=== PATIENT | male | born 1970 | race Caucasian/White ===

== ENCOUNTER 2017-04-03 17:30 | Emergency (ER) | payer BC ==
[~2017-04-03] VITALS: Ht 185.4 cm; Wt 117.9 kg
--- NOTE | ~2017-04-03 | CR172 ---
[facility]. [facility] A Service of [facility] & [facility] RADIOLOGY TEXT RESULTS PATIENT: NEGRO ALVARADO LOCATION: SED : 70 UNIT #: [id number] AGE: [address]: MOY SORIANO SEX: M ORDER DR: [id number] [place] [id number] E MR#: [id number] Acc #: [id number] NAME: NEGRO ALVARADO : 1970 SEX: M STUDY DATE/TIME: 04/03/2017 18:54 UNIT: SED ROOM: STUDY DESCRIPTION: CR Knee 3 Views Lt Attending Physician: Moy Soriano Ordering Physician: Staff Doctor Not On Primary Care Physician: Lesli Gonzalez M.D. MEDICAL IMAGING REPORT This report is preliminary unless electronic signature is present. EXAM Left knee INDICATION Left knee pain and trauma. Fall while cutting grass. FINDINGS 3 views of the left knee without comparison. No fracture, dislocation or effusion. No foreign body. IMPRESSION Negative left knee. Dictated by... Adi Joseph M.D. THIS IS AN ELECTRONICALLY VERIFIED REPORT Adi Joseph M.D. at 04/05/2017 10:32 AM DAMON/sonido TD: 04/04/2017 09:22 JOB #: [id number] MEDICAL IMAGING REPORT Page 1 of 1
--- NOTE | ~2017-04-03 | CR142 ---
[facility] A Service of [facility] & [facility] RADIOLOGY TEXT RESULTS PATIENT: NEGRO ALVARADO LOCATION: SED : 70 UNIT #: [id number] AGE: [address]: MOY SORIANO SEX: M ORDER DR: [id number] [place] [id number] E MR#: [id number] Acc #: [id number] NAME: NEGRO ALVARADO : 1970 SEX: M STUDY DATE/TIME: 04/03/2017 18:54 UNIT: SED ROOM: STUDY DESCRIPTION: CR Hand Min 3 Views Rt Attending Physician: Moy Soriano Ordering Physician: Staff Doctor Not On Primary Care Physician: Lesli Gonzalez M.D. MEDICAL IMAGING REPORT This report is preliminary unless electronic signature is present. EXAM Right hand INDICATION Fall in a ditch. Fall while cutting grass. FINDINGS 3 views of the right hand without comparison. There is no acute fracture or dislocation. Alignment is anatomic. No foreign body. IMPRESSION No acute findings in the right hand. Dictated by... Adi Joseph M.D. THIS IS AN ELECTRONICALLY VERIFIED REPORT Adi Joseph M.D. at 04/05/2017 10:32 AM DAMON/sonido TD: 04/04/2017 09:23 JOB #: [id number] MEDICAL IMAGING REPORT Page 1 of 1
--- NOTE | ~2017-04-03 | CR21 ---
[facility]. [facility] A Service of [facility] & [facility] RADIOLOGY TEXT RESULTS PATIENT: NEGRO ALVARADO LOCATION: SED : 70 UNIT #: [id number] AGE: [address]: MOY SORIANO SEX: M ORDER DR: [id number] [place] [id number] E MR#: [id number] Acc #: [id number] NAME: NEGRO ALVARADO : 1970 SEX: M STUDY DATE/TIME: 04/03/2017 18:54 UNIT: SED ROOM: STUDY DESCRIPTION: CR Ankle Min 3 Views Rt Attending Physician: Moy Soriano Ordering Physician: Physician Non-Staff Primary Care Physician: Lesli Gonzalez M.D. MEDICAL IMAGING REPORT This report is preliminary unless electronic signature is present. EXAM Right ankle INDICATION Fall in a ditch while cutting grass. FINDINGS Three views of the right ankle without comparison. There is some mild lateral soft tissue swelling. There is no fracture or dislocation. There is some osteoarthritis of the right ankle. There may be a calcified loose body in the anterior joint recess. IMPRESSION Soft tissue swelling. Mild osteoarthritis. Dictated by... Adi Joseph M.D. THIS IS AN ELECTRONICALLY VERIFIED REPORT Adi Joseph M.D. at 04/05/2017 10:32 AM Rohit TD: 04/04/2017 08:17 JOB #: [id number] MEDICAL IMAGING REPORT Page 1 of 1
--- NOTE | ~2017-04-03 | CT52 ---
[facility] A Service [facility] RADIOLOGY TEXT RESULTS PATIENT: NEGRO ALVARADO LOCATION: SED : 70 UNIT #: [id number] AGE: [address]: MOY SORIANO SEX: M ORDER DR: [id number] [place] [id number] E MR#: [id number] Acc #: [id number] NAME: NEGRO ALVARADO. : 1970 SEX: M STUDY DATE/TIME: 04/03/2017 19:18 UNIT: SED ROOM: STUDY DESCRIPTION: CT Cervical Spine Wo Cont Attending Physician: Moy Soriano Ordering Physician: Physician Non-Staff Primary Care Physician: Lesli Gonzalez M.D. MEDICAL IMAGING REPORT This report is preliminary unless electronic signature is present. EXAM CT cervical spine INDICATION Fall in a ditch while cutting grass. Neck pain. TECHNIQUE CT of the cervical spine without contrast. Coronal and sagittal reconstructions were obtained. This CT examination was performed with one or more of the following radiation dose reduction techniques: automatic exposure control, adjustment of mA and/or kV according to patient size, and iterative reconstruction. COMPARISON None available. FINDINGS There is no acute fracture or subluxation. Vertebral body height and alignment is normal. There is moderate disc space narrowing at C5-6. Craniocervical junction and atlantoaxial articulations are within normal limits. The prevertebral soft tissues are normal. IMPRESSION 1. No acute traumatic findings in the cervical spine. 2. Mild degenerative changes of the cervical spine greatest at C5-6. Dictated by... Adi Joseph M.D. THIS IS AN ELECTRONICALLY VERIFIED REPORT [facility] A Service [facility] RADIOLOGY TEXT RESULTS PATIENT: NEGRO ALVARADO LOCATION: SED : 70 UNIT #: [id number] AGE: [address]: MOY SORIANO SEX: M ORDER DR: Adi Joseph M.D. at 04/05/2017 10:32 AM DAMON/sam TD: 04/04/2017 09:19 JOB #: [id number] MEDICAL IMAGING REPORT Page 1 of 1
--- NOTE | ~2017-04-03 | CR173 ---
[facility] A Service of [facility] & [facility] RADIOLOGY TEXT RESULTS PATIENT: NEGRO ALVARADO LOCATION: SED : 70 UNIT #: [id number] AGE: [address]: MOY SORIANO SEX: M ORDER DR: [id number] [place] [id number] E MR#: [id number] Acc #: [id number] NAME: NEGRO ALVARADO. : 1970 SEX: M STUDY DATE/TIME: 04/03/2017 18:54 UNIT: SED ROOM: STUDY DESCRIPTION: CR Knee 3 Views Rt Attending Physician: Moy Soriano Ordering Physician: Staff Doctor Not On Primary Care Physician: Lesli Gonzalez M.D. MEDICAL IMAGING REPORT This report is preliminary unless electronic signature is present. EXAM Right knee INDICATION Fall in a ditch while cutting grass. Right knee pain. FINDINGS 3 views of the right knee without comparison. There is no acute fracture or dislocation. No foreign body. No knee effusion. IMPRESSION Negative right knee. Dictated by... Adi Joseph M.D. THIS IS AN ELECTRONICALLY VERIFIED REPORT Adi Joseph M.D. at 04/05/2017 10:32 AM DAMON/sonido TD: 04/04/2017 09:20 JOB #: [id number] MEDICAL IMAGING REPORT Page 1 of 1
--- NOTE | ~2017-04-03 | CR230 ---
[facility]. [facility] A Service of [facility] & [facility] RADIOLOGY TEXT RESULTS PATIENT: NEGRO ALVARADO LOCATION: SED : 70 UNIT #: [id number] AGE: [address]: MOY SORIANO SEX: M ORDER DR: [id number] [place] [id number] E MR#: [id number] Acc #: [id number] NAME: NEGRO ALVARADO : 1970 SEX: M STUDY DATE/TIME: 04/03/2017 18:54 UNIT: SED ROOM: STUDY DESCRIPTION: CR Shoulder Min 2 View Rt Attending Physician: Moy Soriano Ordering Physician: Physician Non-Staff Primary Care Physician: Lesli Gonzalez M.D. MEDICAL IMAGING REPORT This report is preliminary unless electronic signature is present. EXAM Right shoulder. INDICATION Right shoulder pain status post falling in a ditch. FINDINGS Three views of the right shoulder without comparison. There is no acute fracture or dislocation. Acromioclavicular and glenohumeral articulations are within normal limits. IMPRESSION No acute findings. Dictated by... Adi Joseph M.D. THIS IS AN ELECTRONICALLY VERIFIED REPORT Adi Joseph M.D. at 04/05/2017 10:32 AM DAMON/delta TD: 04/04/2017 09:19 JOB #: [id number] MEDICAL IMAGING REPORT Page 1 of 1
--- NOTE | ~2017-04-03 | CR206 ---
[facility]. [facility] A Service of [facility] & [facility] RADIOLOGY TEXT RESULTS PATIENT: NEGRO ALVARADO LOCATION: SED : 70 UNIT #: [id number] AGE: [address]: MOY SORIANO SEX: M ORDER DR: [id number] [place] [id number] E MR#: [id number] Acc #: [id number] NAME: NEGRO ALVARADO. : 1970 SEX: M STUDY DATE/TIME: 04/03/2017 18:54 UNIT: SED ROOM: STUDY DESCRIPTION: CR Pelvis 1 or 2 Views Attending Physician: Moy Soriano Ordering Physician: Moy Soriano Primary Care Physician: Lesli Gonzalez M.D. MEDICAL IMAGING REPORT This report is preliminary unless electronic signature is present. EXAM Pelvic radiograph INDICATION Fall in a ditch while cutting grass. Right hip pain. FINDINGS Single view of the pelvis without comparison. There is no acute fracture. No dislocation. Sacroiliac joints and pubic symphysis are within normal limits. IMPRESSION No acute findings. Dictated by... Adi Joseph M.D. THIS IS AN ELECTRONICALLY VERIFIED REPORT Adi Joseph M.D. at 04/05/2017 10:32 AM Rohit TD: 04/04/2017 09:16 JOB #: [id number] MEDICAL IMAGING REPORT Page 1 of 1
--- NOTE | ~2017-04-03 | CT57 ---
[facility] A Service of [facility] / [facility] RADIOLOGY TEXT RESULTS PATIENT: NEGRO ALVARADO LOCATION: SED : 70 UNIT #: [id number] AGE: [address]: MOY SORIANO SEX: M ORDER DR: [id number] [place] [id number] E MR#: [id number] Acc #: [id number] NAME: NEGRO ALVARADO. : 1970 SEX: M STUDY DATE/TIME: 04/03/2017 19:21 UNIT: SED ROOM: STUDY DESCRIPTION: CT Chest Wo Cont Attending Physician: Moy Soriano Ordering Physician: Moy Soriano Primary Care Physician: Lesli Gonzalez M.D. MEDICAL IMAGING REPORT This report is preliminary unless electronic signature is present. EXAM CT chest without contrast. HISTORY Chest pain after a fall today. TECHNIQUE CT chest was performed without contrast. This CT exam was performed with one or more of the following radiation dose reduction techniques: automatic exposure control, adjustment of mA and/or kV according to patient size, and iterative reconstruction. FINDINGS There is minimal atelectasis in the posterior right lower lobe and in the anteromedial right midlung. No airspace infiltrates. No pleural effusions. Calcified right hilar nodes. No adenopathy. Normal caliber thoracic aorta. No pneumothorax. No pleural effusion. 3 mm nonobstructing stone in the upper pole of the right kidney. IMPRESSION 1. No acute findings. 2. No infiltrates or effusions or pneumothorax. 3. Incidental 3 mm nonobstructing stone in the upper pole of the right kidney. Dictated by... Brian Cifuentes M.D. THIS IS AN ELECTRONICALLY VERIFIED REPORT [facility] A Service [facility] RADIOLOGY TEXT RESULTS PATIENT: NEGRO ALVARADO LOCATION: SED : 70 UNIT #: [id number] AGE: [address]: MOY SORIANO SEX: M ORDER DR: Brian Cifuentes M.D. at 04/04/2017 11:18 PM LEN/delta TD: 04/04/2017 09:20 JOB #: [id number] MEDICAL IMAGING REPORT Page 1 of 1
[~2017-04-03 17:30] MED LIST: AMOXIL; BACTRIM DS TABL1 TA1 PO; CIPRO PO; COLACE PO; DIFLUCAN PO; MIRALAX17 GM PO; NEXIUM PO; PROTONIX PO; XANAX1 MG PO
== END 2017-04-03 20:18 | disposition home or self-care (01) ==
LOC: SED 17:30
DX: S83.91XA Sprain of unspecified site of right knee, initial encounter (principal); S63.91XA Sprain of unspecified part of right wrist and hand, initial encounter; S83.92XA Sprain of unspecified site of left knee, initial encounter; S16.1XXA Strain of muscle, fascia and tendon at neck level, initial encounter; S76.012A Strain of muscle, fascia and tendon of left hip, initial encounter; S76.011A Strain of muscle, fascia and tendon of right hip, initial encounter; S46.911A Strain of unspecified muscle, fascia and tendon at shoulder and upper arm level, right arm, initial encounter; M50.322 Other cervical disc degeneration at C5-C6 level; Z88.5 Allergy status to narcotic agent; Z88.1 Allergy status to other antibiotic agents; Z79.899 Other long term (current) drug therapy; W01.0XXA Fall on same level from slipping, tripping and stumbling without subsequent striking against object, initial encounter; Y92.009 Unspecified place in unspecified non-institutional (private) residence as the place of occurrence of the external cause
CPT/HCPCS: 29280; 29405; 71250; 72125; 72170; 73030; 73130; 73562; 73610; 99284